=== PATIENT | male | born 1955 | race Caucasian/White ===

== ENCOUNTER 2020-02-10 | Outpatient (REF) | payer BC, SELFPAY ==
[2020-02-09 22:02] LABS: Abs Immature Grans 0.01 k/cumm (0.0-0.09); Absolute Basophil Count 0.04 k/cumm (0.0-0.2); Absolute Monocyte Count 0.51 k/cumm (0.11-0.7); Absolute Neutrophil Count 1.78 k/cumm (1.2-6.7); Basophils % 0.7; Eosinophils % 1.7; HCT 46.7 % (40.0-50.0); HGB 15.6 g/dL (13.5-17.5); Immature Grans % 0.2 %; Lymphocytes % 58.2; Mean Corp. HGB Concentration 33.4 g/dL (32.0-36.0); Mean Corpuscular Hemoglobin 23.7 pg (27.0-33.0); Mean Corpuscular Volume 71.1 fL (80-95); Mean Platelet Volume 11.5 fL (8.0-11.0); Monocytes % 8.7; Neutrophils % 30.5; Platelet Count 247 x1000/uL (130-400); RBC 6.57 m/cumm (4.50-6.00); RBC Distribution Width 16.8 % (11.8-14.1); White Blood Cell Count 5.84 k/cumm (4.4-10.8)
[2020-02-09 22:18] LABS: ALT 30 U/L (16-63); AST 28 U/L (15-37); Albumin 4.1 g/dL (3.4-5.0); Alkaline Phosphatase 66 U/L (46-116); Anion Gap 9.9 mmol/L (3-11); BUN 17 mg/dL (7-18); Bilirubin, Total 0.4 mg/dL (0.2-1.0); CO2 26.1 mmol/L (21.0-32.0); CREATININE 1.38 mg/dL (0.70-1.30); Calcium 8.8 mg/dL (8.5-10.1); Chloride 106 mmol/L (98-107); Estimated GFR 51.88 (mL/min/1.73m2); Glucose 89 mg/dL (74-106); Potassium 4.3 mmol/L (3.5-5.1); Sodium 142 mmol/L (136-145); Total Protein 7.4 g/dL (6.4-8.2)
[2020-02-09 22:59] LABS: Microcytosis 1+
== END 2020-02-10 00:20 ==
LOC: NCHCN
PROVIDERS: PCP Family Medicine; Visit Provider Nurse Practitioner Community Health
DX: D50.9 Iron deficiency anemia, unspecified (principal); R79.89 Other specified abnormal findings of blood chemistry; C81.99 Hodgkin lymphoma, unspecified, extranodal and solid organ sites
CPT/HCPCS: 80053; 85025

== ENCOUNTER 2020-10-06 15:56 | Outpatient (REF) | payer BC, SELFPAY | END 2020-10-06 16:16 | LOC: NCHCN 15:56 | PROVIDERS: PCP Family Medicine; Visit Provider Nurse Practitioner Family | DX: L02.511 Cutaneous abscess of right hand (principal); M79.646 Pain in unspecified finger(s) | CPT/HCPCS: 87077; 87070; 87186; 87205 ==

== ENCOUNTER 2021-01-17 23:05 | Outpatient (REF) | payer BC, SELFPAY ==
[2021-01-17 22:25] LABS: Absolute Basophil Count 0.08 10^3/uL (0.0-0.2); Absolute Eosinophil Count 0.14 10^3/uL (0.0-0.7); Absolute Lymphocyte Count 2.81 10^3/uL (1.2-3.4); Absolute Monocyte Count 0.43 10^3/uL (0.1-0.8); Absolute Neutrophil Count 1.69 10^3/uL (1.2-6.7); Basophils % 1.6; Eosinophils % 2.7; HCT 51.1 % (40.0-50.0); HGB 16.6 g/dL (13.5-17.5); Lymphocytes % 54.6; MCH 24.2 pg (27.0-33.0); MCHC 32.5 % (32.0-36.0); MCV 74.4 fL (80-95); MPV 11.1 fL (8.0-11.0); Monocytes % 8.3; Neutrophils % 32.8; Nucleated RBC 0 %; Platelet Count 238 10^3/uL (130-400); RBC 6.87 10^6/uL (4.36-5.78); RDW 16.8 % (11.8-14.1); RDW-SD 39.6 fL; WBC 5.15 10^3/uL (4.4-10.8)
[2021-01-17 22:41] LABS: ALT 35 U/L (16-63); AST 25 U/L (15-37); Albumin 4.6 g/dL (3.4-5.0); Alkaline Phosphatase 70 U/L (46-116); Anion Gap 12.9 mmol/L (3-11); BUN 12 mg/dL (7-18); Bilirubin, Total 0.6 mg/dL (0.2-1.0); CO2 25.1 mmol/L (21.0-32.0); CREATININE 1.3 mg/dL (0.70-1.30); Calcium 9.4 mg/dL (8.5-10.1); Chloride 105 mmol/L (98-107); Glucose 79 mg/dL (74-106); Potassium 4.7 mmol/L (3.5-5.1); Sodium 143 mmol/L (136-145); Total Protein 8.1 g/dL (6.4-8.2)
[2021-01-18 15:05] LABS: Diff Comment RBC Morph Reviewed; Microcytosis 3+
== END 2021-01-17 23:06 | disposition home or self-care (01) ==
LOC: NCHCN 23:05
PROVIDERS: PCP Family Medicine; Visit Provider Nurse Practitioner Community Health
DX: I10 Essential (primary) hypertension (principal); N18.30 Chronic kidney disease, stage 3 unspecified; F55.8 Abuse of other non-psychoactive substances
CPT/HCPCS: 80053; 85025